=== PATIENT | female | born 1945 | race Caucasian/White ===

== ENCOUNTER 2019-02-12 15:42 | Emergency (ER) | payer MEDICARE, BC ==
[~2019-02-12] VITALS: Ht 160 cm; Wt 71.7 kg
--- NOTE | 2019-02-12 15:49 | NUR ---
PT BIB [address],BLURRING OF VISION/NEAR SYNCOPE AFTER GETTING INTO HER CAR, FELL DOWN LANDING ON HER BUTTOCKS. PT IS AAOX4, NOT IN RESPIRTORY DISTRESS, HOOKED TO MONITOR, KEPT RESTED AND COMFORTABLE.
--- NOTE | 2019-02-12 16:18 | NUR ---
SEEN AND EXAMINED BY DR. DA SILVA.
[2019-02-12] MEDS ORDERED: IV NS 0.9% 500 ML BAG IV ONE (16:30)
--- NOTE | 2019-02-12 16:32 | NUR ---
LABS DRAWNED AND SENT TO LAB.
[2019-02-12 16:33] LABS: BASOPHILS # (AUTO) 0.1 /CMM (0.0-0.2); BASOPHILS % (AUTO) 1.3 % (0.0-2.0); EOSINOPHILS % (AUTO) 0.9 % (0.0-6.0); HEMATOCRIT 32 % (33-45); LYMPHOCYTES % (AUTO) 12.7 % (20.0-44.0); MEAN CORPUSCULAR HGB CONC 34 g/dl (31.0-36.0); MEAN CORPUSCULAR VOLUME 107 fL (82-100); MONOCYTES # (AUTO) 0.6 /CMM (0.1-1.30); NEUTROPHILS # (AUTO) 5.8 /CMM (1.8-8.9); NEUTROPHILS % (AUTO) 77.1 % (43.0-81.0); PLATELET COUNT (AUTO) 342 /CMM (150-450); RED BLOOD CELL COUNT(AUTO) 3.03 MIL/uL (4.0-5.2); WHITE BLOOD COUNT (AUTO) 7.5 K/uL (4.3-11.0)
--- NOTE | 2019-02-12 16:33 | NUR ---
CLINICAL BIOSTATISTICS DIRECTOR AT BEDSIDE FOR XRAY.
[2019-02-12 16:41] LABS: CARBON DIOXIDE 24 mmol/L (21-32); CHLORIDE 106 mmol/L (98-107); CREATININE 1.4 mg/dL (0.6-1.3); GLUCOSE 133 mg/dL (74-106); POTASSIUM 4.8 mmol/L (3.5-5.1); SODIUM SERUM 140 mmol/L (136-145); UREA NITROGEN, BLOOD 42 mg/dL (7-18)
[2019-02-12 16:48] LABS: ALANINE AMINOTRANSFERASE 35 U/L (12-78); ALBUMIN 3.1 g/dL (3.4-5.0); ALKALINE PHOSPHATASE 47 U/L (46-116); ASPARTATE AMINOTRANSFERASE 23 U/L (15-37); BILIRUBIN,DIRECT 0.1 mg/dL (0.0-0.2); BILIRUBIN,TOTAL 0.3 mg/dL (0.2-1.0); TOTAL PROTEIN, SERUM 6.3 g/dL (6.4-8.2)
--- NOTE | 2019-02-12 17:00 | NUR ---
PT IS WHEELED TO CT SCAN VIA [facility].
--- NOTE | 2019-02-12 17:59 | NUR ---
Patient discharged to home in stable condition. Written and verbal after care instructions given. Patient verbalizes understanding of instruction.IV removed. Catheter intact and site benign. Pressure and 4x4 applied to site. No bleeding noted.
[2019-02-12 18:00] VITALS: BP 108/62
[2019-02-12 20:44] LABS: EOSINOPHILS % (MANUAL) 1 % (0-4); LYMPHOCYTES % (MANUAL) 16 % (16-48); MONOCYTES % (MANUAL) 9 % (0-11.0); NEUTROPHILS % (MANUAL) 74 (42-76)
== END 2019-02-12 18:04 | disposition home or self-care (01) ==
LOC: ER 15:47
DX: S09.8XXA Other specified injuries of head, initial encounter (principal); N28.9 Disorder of kidney and ureter, unspecified; I10 Essential (primary) hypertension; Z98.890 Other specified postprocedural states; W17.89XA Other fall from one level to another, initial encounter; Y93.89 Activity, other specified; Y92.89 Other specified places as the place of occurrence of the external cause; Y99.8 Other external cause status
CPT/HCPCS: 36415; 70450; 71045; 80048; 80076; 84484; 85025; 93005; 99284; J7040

== ENCOUNTER → 2025-06-09 | Emergency (ER) | payer BC, MEDICARE ==
[~2025-06-09] VITALS: Ht 167.6 cm; Wt 87.5 kg
[~2025-06-09] MED LIST: LABETALOL HCL IV 100MG VIAL ONE
[2025-06-09] MEDS: LABETALOL HCL IV 100MG VIAL IV ONE (16:40)
[2025-06-09 17:08] LABS: PLATELET COUNT (AUTO) 290 K/uL (150-450); RED BLOOD CELL COUNT(AUTO) 3.69 MIL/uL (4.0-5.2); RED CELL DISTRIBUTION WIDTH 14.2 % (11.5-15.0); WHITE BLOOD COUNT (AUTO) 5.6 K/uL (4.3-11.0)
[2025-06-09 17:19] LABS: CALCIUM, SERUM 8.9 mg/dL (8.5-10.1); CREATININE 2.1 mg/dL (0.6-1.3); SODIUM SERUM 132 mmol/L (136-145); UREA NITROGEN, BLOOD 34 mg/dL (7-18)
[2025-06-09 17:21] LABS: INR 1.0 (0.91-1.10)
[2025-06-09 18:47] VITALS: BP 139/71; TEMP 97.9; O2SAT 98
== END | disposition home or self-care (01) ==
LOC: ER 15:23
DX: I10 Essential (primary) hypertension (principal); R00.0 Tachycardia, unspecified; R07.9 Chest pain, unspecified; R42 Dizziness and giddiness; R51.9 Headache, unspecified; R53.1 Weakness; M10.9 Gout, unspecified
CPT/HCPCS: 99285; 70450; 96374; 71045; 93005; 74176; 85025; 80048; 36415; 84484 ×2; 85730; J3490